=== PATIENT | male | born 1990 | race Caucasian/White ===

== ENCOUNTER 2018-02-17 10:51 | Emergency (ER) | payer OTHER ==
[2018-02-17] MEDS ORDERED: ACETAMINOPHEN 325 MG TAB PO (11:03)
== END 2018-02-17 11:11 | disposition home or self-care (01) ==
LOC: E/R 10:51
DX: J06.9 Acute upper respiratory infection, unspecified (principal)
CPT/HCPCS: 99284; Z7502